=== PATIENT | male | born 1975 | race Caucasian/White ===

== ENCOUNTER 2023-12-08 12:57 | Emergency (ER) | payer OTHER ==
[~2023-12-08] VITALS: Ht 180.3 cm; Wt 77.6 kg
[2023-12-08] MEDS ORDERED: KETOROLAC TROMETHAMINE INJ 30 MG/ML VIAL ONE (13:19)
[2023-12-08] MEDS ORDERED: CYCLOBENZAPRINE 10 MG TABLET ONE (13:19)
[2023-12-08] MEDS: KETOROLAC TROMETHAMINE INJ 60 MG/2 ML VIAL IM ONE (13:23)
[2023-12-08] MEDS: CYCLOBENZAPRINE 10 MG TABLET PO ONE (13:23)
[2023-12-08] MEDS ORDERED: CYCL5TAB PO (13:41)
[2023-12-08 14:04] VITALS: BP 130/70; TEMP 98.6; O2SAT 100
== END 2023-12-08 14:04 | disposition home or self-care (01) ==
LOC: ER 12:57
DX: M54.59 Other low back pain (principal); M54.2 Cervicalgia; V43.52XA Car driver injured in collision with other type car in traffic accident, initial encounter; Y93.89 Activity, other specified; Y92.488 Other paved roadways as the place of occurrence of the external cause; Y99.8 Other external cause status
CPT/HCPCS: 99283; 96372; J1885